=== PATIENT | female | born 1960 | race Caucasian/White ===

== ENCOUNTER 2017-02-23 07:48 | Day surgery (SDC) | payer BC ==
[2017-02-18 10:44] VITALS: BMI 24.6
[2017-02-23] MEDS ORDERED: LIDOCAINE HCL/PF 2% SDV 5ML VIAL ONE (07:52)
[2017-02-23] MEDS ORDERED: PROPOFOL 20 ML ONE ×2 (07:52)
[2017-02-23 08:15] VITALS: TEMP 98.5
[2017-02-23 09:55] VITALS: BP 101/59; PULSE 67
== END 2017-02-23 09:55 | disposition home or self-care (01) ==
LOC: FASU-ENDO 07:48
PROVIDERS: ATTEND Internal Medicine Gastroenterology
PROC: 0DJD8ZZ Inspection of Lower Intestinal Tract, Via Natural or Artificial Opening Endoscopic (ICD-10-PCS; principal; 2017-02-23 08:54)
DX: Z12.11 Encounter for screening for malignant neoplasm of colon (principal); K64.4 Residual hemorrhoidal skin tags
CPT/HCPCS: 84703